=== PATIENT | female | born 1995 | race Caucasian/White ===

== ENCOUNTER 2019-08-26 12:47 | Emergency (ER) | payer SELFPAY ==
[~2019-08-26] VITALS: Ht 170.2 cm; Wt 68.0 kg
[2019-08-26 13:12] VITALS: BP 119/55
--- NOTE | 2019-08-26 13:30 | NUR ---
Vital Signs Stable. Pt sent back to [facility]. Awaiting for bed availabilty.
--- NOTE | 2019-08-26 14:05 | NUR ---
PT AMBULATED TO BED 1
--- NOTE | 2019-08-26 14:09 | NUR ---
Since Saturday pt feeling dizzy. Worse when changing positions. Unsteady gait. "When I walk I feel like I just got off a boat." Denies trauma or any head injury. Allergies: Penicillin Med hx: none
[2019-08-26 14:43] VITALS: BP 99/58
--- NOTE | 2019-08-26 14:43 | NUR ---
Patient discharged with v/s stable. Written and verbal after care instructions given and explained. Patient verbalized understanding. Ambulatory with steady gait. All questions addressed prior to discharge. Advised to follow up with PMD.
== END 2019-08-26 14:43 | disposition home or self-care (01) ==
LOC: MED 12:47
DX: H81.10 Benign paroxysmal vertigo, unspecified ear (principal); Z88.0 Allergy status to penicillin
CPT/HCPCS: 81002; 81025; 99282